=== PATIENT | male | born 1995 | race African-American/Black ===

== ENCOUNTER 2018-12-17 21:44 | Emergency (ER) | payer SELFPAY ==
[~2018-12-17] VITALS: Ht 172.7 cm; Wt 68.2 kg
[2018-12-17 22:04] VITALS: BP 122/80; PULSE 79; TEMP 98.3
== END 2018-12-17 23:25 | disposition left against medical advice (07) ==
LOC: COL.ER 21:44
DX: S61.210A Laceration without foreign body of right index finger without damage to nail, initial encounter (principal); W25.XXXA Contact with sharp glass, initial encounter